=== PATIENT | male | born 1955 | race Caucasian/White ===

== ENCOUNTER 2024-09-22 10:28 | Outpatient (CLI) | payer MEDICARE ==
[2024-09-22] MEDS ORDERED: Iopamidol 300 61% 100 ML VIAL FS ONE (12:12)
== END 2024-09-22 10:29 | disposition home or self-care (01) ==
LOC: CSHCT 10:28
PROVIDERS: ATTEND Internal Medicine Cardiovascular Disease
DX: I65.23 Occlusion and stenosis of bilateral carotid arteries (principal); R55 Syncope and collapse
CPT/HCPCS: 70498; 82565; Q9967